=== PATIENT | male | born 1990 | race African-American/Black ===

== ENCOUNTER 2018-09-21 22:05 | Emergency (ER) | payer OTHER ==
[~2018-09-21] VITALS: Ht 172.7 cm; Wt 72.6 kg
[~2018-09-21 22:05] MED LIST: BACTRIM DS TAB1 EACH PO; LIDOCAINE VISC100 M1 MM; NOHOMEMEDICATIONS
[2018-09-21 22:29] LABS: URINE BILIRUBIN NEGATIVE (Negative); URINE BLOOD TRACE (Negative); URINE CLARITY SL CLOUDY; URINE COLOR YELLOW; URINE GLUCOSE-RANDOM NEGATIVE (Negative); URINE KETONES NEGATIVE (Negative); URINE LEUKOCYTES-REFLEX 1+ (Negative); URINE NITRITE-REFLEX NEGATIVE (Negative); URINE PROTEIN TRACE (Negative)
[2018-09-21 22:35] LABS: SQUAMOUS NONE SEEN /LPF (0-3)
[2018-09-21 22:36] LABS: BACTERIA-REFLEX 1-9 Few /HPF (None Seen); CASTS None Seen /LPF (None Seen); CRYSTALS None Seen /LPF (None Seen); MUCUS None Seen strn/LPF (None Seen); URINE RBC 0-2 Rare /HPF (0-2); URINE WBC-REFLEX >25 Many /HPF (0-5); WBC CLUMPS Few (None Seen)
[2018-09-21] MEDS ORDERED: DOXYCYCLINE 10100 MG PO (22:51)
[2018-09-21 23:00] VITALS: BP 118/69
== END 2018-09-21 23:01 | disposition home or self-care (01) ==
LOC: M.ERS 22:05
PROVIDERS: Emergency Medicine
DX: N39.0 Urinary tract infection, site not specified (principal); F90.9 Attention-deficit hyperactivity disorder, unspecified type